=== PATIENT | male | born 1955 | race Asian ===

== ENCOUNTER 2018-11-16 11:30 | Day surgery (SDC) | payer BC ==
[~2018-11-16 11:30] MED LIST: PROPOFOL 200 MG INJ
[2018-11-16] MEDS ORDERED: LIDOCAINE 2% (SDV) 5 ML INJ (14:02)
[2018-11-16] MEDS ORDERED: PROPOFOL 60 ML (14:02)
== END 2018-11-16 15:10 | disposition home or self-care (01) ==
LOC: GIL 11:30
DX: Z12.11 Encounter for screening for malignant neoplasm of colon (principal); K57.30 Diverticulosis of large intestine without perforation or abscess without bleeding; K64.8 Other hemorrhoids; E78.5 Hyperlipidemia, unspecified; I10 Essential (primary) hypertension; Z86.010 Personal history of colon polyps
CPT/HCPCS: 45378